=== PATIENT | male | born 1995 | race Caucasian/White ===

== ENCOUNTER 2020-08-05 17:45 | Emergency (ER) | payer OTHER ==
[~2020-08-05 17:45] MED LIST: AZITHROMYCIN250 MG PO; BROMFED DM COU473 ML PO; DUONEB 2.5-0.5M1 AMP INH; DUONEB 2.5-0.5M1 AMP NEB; IBUPROFEN800 MG PO; MEDROL 4MG DOSEP4 MG PO; PREDNISONE 20MG20 MG PO; PREDNISONE50 MG PO; SINGULAIR10 MG PO; SYMBICORT 16010.2 GM INH; SYMBICORT 80-10.2 GM INH; TAMIFLU 75MG CA75 MG PO; TESSALON PERLE100 MG PO; VENTOLIN (2.5 MG/3 M INH; VENTOLIN HFA IN18 GM INH; VENTOLIN HFA18 GM INH; ZPAK PO
[2020-08-05] MEDS ORDERED: NAPROXEN500 MG PO (18:38)
[2020-08-05] MEDS ORDERED: PENICILLIN V P250 M1 PO (18:38)
== END 2020-08-05 18:54 | disposition home or self-care (01) ==
LOC: FER 17:45
DX: K04.7 Periapical abscess without sinus (principal); K02.9 Dental caries, unspecified; R03.0 Elevated blood-pressure reading, without diagnosis of hypertension; Z87.09 Personal history of other diseases of the respiratory system
CPT/HCPCS: 99282; J1885; Q0163

== ENCOUNTER 2020-12-10 22:32 | Emergency (ER) | payer OTHER ==
[~2020-12-10 22:32] MED LIST changes: +NAPROXEN500 MG PO; +PENICILLIN V P250 M1 PO
[2020-12-10] MEDS ORDERED: AUGMENTIN 875-1 EACH PO (23:14)
== END 2020-12-10 23:40 | disposition home or self-care (01) ==
LOC: FER 22:32
DX: K04.7 Periapical abscess without sinus (principal); J45.909 Unspecified asthma, uncomplicated
CPT/HCPCS: 41008

== ENCOUNTER 2021-03-18 19:19 | Emergency (ER) | payer OTHER ==
[~2021-03-18 19:19] MED LIST changes: +AUGMENTIN 875-1 EACH PO
[2021-03-18 22:58] LABS: INFLUENZA A NAA NEGATIVE (NEGATIVE)
[2021-03-18 23:06] LABS: CORONAVIRUS 2019 SARS-COV-2 POSITIVE (NEGATIVE)
[2021-03-18] MEDS ORDERED: VENTOLIN HFA IN18 GM INH (23:10)
[2021-03-18] MEDS ORDERED: VENTOLIN (2.5 MG/3 M INH (23:10)
== END 2021-03-18 23:18 | disposition home or self-care (01) ==
LOC: FER 19:19
PROVIDERS: Nurse Practitioner Family
DX: U07.1 COVID-19 (principal); J44.9 Chronic obstructive pulmonary disease, unspecified; Z79.51 Long term (current) use of inhaled steroids; Z79.899 Other long term (current) drug therapy
CPT/HCPCS: 71046; U0002